=== PATIENT | female | born 1945 ===

== ENCOUNTER 2021-06-23 17:53 | Inpatient (IN) ==
[2021-06-23 21:51] LABS: Hematocrit 31 % (35-47); Hemoglobin 10.3 g/dL (12.0-16.0); Mean Corpuscular HGB Conc 33 g/dL (31-36); Mean Corpuscular Hemoglobin 29 pg (27-31); Mean Corpuscular Volume 87 fL (80-97); Mean Platelet Volume 7.8 fL (7.4-10.4); Platelet Count 251 10^3/uL (150-450); Red Blood Count 3.57 10^6 /uL (3.70-4.87); Red Cell Distribution Width 15 % (10-15); White Blood Count 16.1 10^3/uL (3.5-10.8)
[2021-06-23 21:59] LABS: Urine Appearance Cloudy; Urine Bilirubin Negative (Negative); Urine Blood 1+ (Negative); Urine Color Yellow; Urine Glucose Negative (Negative); Urine Ketones Negative (Negative); Urine Nitrite Negative (Negative); Urine Protein 1+(30 mg/dL) (Negative); Urine Specific Gravity 1.013 (1.002-1.030); Urine Urobilinogen Negative (Negative)
[2021-06-23 22:03] LABS: Urine Bacteria 1+ (Absent); Urine Red Blood Cell 1+(3-5/hpf) (Absent); Urine Squamous Epithelial Cell Present (Absent); Urine White Blood Cell 1+(6-10/hpf) (Absent)
[2021-06-23 22:10] LABS: ALT 23 U/L (7-52); AST 38 U/L (13-39); Albumin 2.6 g/dL (3.2-5.2); Albumin/Globulin Ratio 0.5 (1-3); Alkaline Phosphatase 132 U/L (35-149); Blood Urea Nitrogen 33 mg/dL (6-24); CO2 Carbon Dioxide 23 mmol/L (22-32); Calcium 8.4 mg/dL (8.6-10.3); Chloride 97 mmol/L (101-111); Globulin 5.6 g/dL (2-4); Glucose 152 mg/dL (70-100); Magnesium 1.5 mg/dL (1.9-2.7); Sodium 130 mmol/L (135-145); Total Protein 8.2 g/dL (6.4-8.9)
[2021-06-23 22:14] LABS: ABS Lymphocytes 1.4 10^3/ul (1.0-4.8); ABS Monocytes 2.4 10^3/ul (0-0.8); ABS Neutrophils 12.2 10^3/ul (1.5-7.7); Eosinophil % 0.1 %; Lymphocyte % 8.6 %; Nucleated Red Blood Cells % 0.1
[2021-06-23 22:18] LABS: Anion Gap 10 mmol/L (2-11)
[2021-06-23 22:19] LABS: Potassium 2.6 mmol/L (3.5-5.0)
[2021-06-23 22:21] LABS: Rapid COVID-19 Molecular Undetected (Undetected)
[2021-06-23 22:22] LABS: Influenza A Molecular Negative (Negative); Influenza B Molecular Negative (Negative)
[2021-06-23] MEDS ORDERED: NS 0.9% 1000 ml BAG 1,000 ML IV ONE (22:28)
[2021-06-23] MEDS ORDERED: Azithromycin 500 mg/250 ml NS 500 MG/250 ML BAG IVPB ONE (22:29)
[2021-06-23] MEDS ORDERED: cefTRIAXone 1 gm/50 mL NS BAG 1 GM/50 ML BAG IV ONE (22:29)
[2021-06-23] MEDS ORDERED: Potassium Chlor 20 meq TAB.ER PO ONE (22:30)
[2021-06-23] MEDS ORDERED: Magnesium Sulfate 2 gm BAG 2 GM/50 ML BAG IVPB ONE (22:45)
[2021-06-23 22:47] LABS: Troponin I 0.06 ng/mL (<0.03)
[2021-06-23] MEDS ORDERED: KCL 20 MEQ/100 ML IVPREMIX 20 MEQ/100 ML BAG IV SCH (23:00)
[2021-06-24] MEDS ORDERED: cefTRIAXone VIAL 1,000 MG VIAL IM ONE (01:13)
[2021-06-24] MEDS: Enoxaparin 30 MG/0.3 ML SYR SUBCUT SCH (01:55)
[2021-06-24] MEDS: Neomycin/Polym/Bacit OPH.OINT 3.5 GM BOTH EYES SCH ×5 (03:12→20:48)
[2021-06-24 03:46] LABS: Total Iron Binding Capacity 123 mcg/dL (250-450); Transferrin 88 mg/dL (203-362)
[2021-06-24 03:48] LABS: % Iron Saturation 16 % (15-55); Iron < 20 ug/dL (50-212); Unsaturated Iron Binding < 108 ug/dL
[2021-06-24 05:21] LABS: Troponin I 0.07 ng/mL (<0.03)
[2021-06-24 08:14] LABS: Hematocrit 28 % (35-47); Hemoglobin 9.2 g/dL (12.0-16.0); Mean Corpuscular HGB Conc 33 g/dL (31-36); Mean Corpuscular Hemoglobin 28 pg (27-31); Mean Corpuscular Volume 86 fL (80-97); Mean Platelet Volume 8.1 fL (7.4-10.4); Platelet Count 266 10^3/uL (150-450); Red Blood Count 3.27 10^6 /uL (3.70-4.87); Red Cell Distribution Width 15 % (10-15); White Blood Count 16.5 10^3/uL (3.5-10.8)
[2021-06-24 08:38] LABS: Anion Gap 8 mmol/L (2-11); Blood Urea Nitrogen 35 mg/dL (6-24); CO2 Carbon Dioxide 23 mmol/L (22-32); Calcium 8.3 mg/dL (8.6-10.3); Chloride 102 mmol/L (101-111); Glucose 113 mg/dL (70-100); Magnesium 1.7 mg/dL (1.9-2.7); Potassium 3.1 mmol/L (3.5-5.0); Sodium 133 mmol/L (135-145)
[2021-06-24 09:40] LABS: ABS Eosinophils 0.1 10^3/ul (0-0.6); ABS Lymphocytes 2.1 10^3/ul (1.0-4.8); ABS Monocytes 2.4 10^3/ul (0-0.8); ABS Neutrophils 11.8 10^3/ul (1.5-7.7); Eosinophil % 0.7 %; Lymphocyte % 12.8 %; Nucleated Red Blood Cells % 0.1; RBC Morphology Normal (Normal); Toxic Granulation 1+
[2021-06-24 10:26] LABS: Troponin I 0.07 ng/mL (<0.03)
[2021-06-24] MEDS ORDERED: D5W 1/2 NS 40 Meq KCL 1000 ml 1,000 ML IV SCH (12:00)
[2021-06-24 12:27] LABS: ALT 21 U/L (7-52); AST 35 U/L (13-39); Albumin 2.4 g/dL (3.2-5.2); Albumin/Globulin Ratio 0.5 (1-3); Alkaline Phosphatase 111 U/L (35-149); Anion Gap 13 mmol/L (2-11); Blood Urea Nitrogen 35 mg/dL (6-24); CO2 Carbon Dioxide 19 mmol/L (22-32); Calcium 8.3 mg/dL (8.6-10.3); Chloride 101 mmol/L (101-111); Globulin 5.1 g/dL (2-4); Glucose 116 mg/dL (70-100); Magnesium 1.5 mg/dL (1.9-2.7); Sodium 133 mmol/L (135-145); Total Protein 7.5 g/dL (6.4-8.9)
[2021-06-24 12:30] LABS: Albumin 2.5 g/dL (3.2-5.2); Albumin/Globulin Ratio 0.5 (1-3); Calcium 8.3 mg/dL (8.6-10.3); Globulin 5.1 g/dL (2-4); Magnesium 1.6 mg/dL (1.9-2.7); Total Bilirubin 0.8 mg/dL (0.2-1.0); Total Protein 7.6 g/dL (6.4-8.9)
[2021-06-24 13:06] LABS: Potassium 3.5 mmol/L (3.5-5.0)
[2021-06-25 06:04] LABS: Hematocrit 28 % (35-47); Hemoglobin 9.4 g/dL (12.0-16.0); Mean Corpuscular HGB Conc 33 g/dL (31-36); Mean Corpuscular Hemoglobin 29 pg (27-31); Mean Corpuscular Volume 86 fL (80-97); Mean Platelet Volume 7.9 fL (7.4-10.4); Platelet Count 255 10^3/uL (150-450); Red Blood Count 3.28 10^6 /uL (3.70-4.87); Red Cell Distribution Width 15 % (10-15); White Blood Count 14.8 10^3/uL (3.5-10.8)
[2021-06-25] MEDS: Neomycin/Polym/Bacit OPH.OINT 3.5 GM BOTH EYES SCH ×7 (06:18→20:36)
[2021-06-25 06:22] LABS: Albumin 2.3 g/dL (3.2-5.2); Albumin/Globulin Ratio 0.5 (1-3); Calcium 8.1 mg/dL (8.6-10.3); Globulin 4.6 g/dL (2-4); Magnesium 1.6 mg/dL (1.9-2.7); Potassium 3.5 mmol/L (3.5-5.0); Total Bilirubin 0.7 mg/dL (0.2-1.0); Total Protein 6.9 g/dL (6.4-8.9)
[2021-06-25 06:41] LABS: Ferritin 693.7 ng/mL (11-307)
[2021-06-25 07:14] LABS: ABS Eosinophils 0.2 10^3/ul (0-0.6); ABS Lymphocytes 2.1 10^3/ul (1.0-4.8); ABS Neutrophils 10.5 10^3/ul (1.5-7.7); Eosinophil % 1.2 %; Lymphocyte % 13.8 %
[2021-06-25] MEDS ORDERED: Magnesium Sulf 4 GM/100 ML IV 4,000 MG/100 ML BAG IVPB ONE (07:24)
[2021-06-25] MEDS: Enoxaparin 30 MG/0.3 ML SYR SUBCUT SCH (08:27)
[2021-06-25] MEDS: Azithromyxin PAK 250 mg TA(NF) PO SCH (12:24)
[2021-06-25] MEDS: Fluticasone NASAL SPRAY 50MCG 16 gm SPRAY BTL BOTH NARES SCH (12:26)
[2021-06-25] MEDS: cefTRIAXone 1 gm/50 mL NS BAG 1 GM/50 ML BAG IVPB SCH (12:30)
[2021-06-26] MEDS: Neomycin/Polym/Bacit OPH.OINT 3.5 GM BOTH EYES SCH ×6 (02:47→20:39)
[2021-06-26 06:03] LABS: ABS Eosinophils 0.2 10^3/ul (0-0.6); ABS Lymphocytes 1.8 10^3/ul (1.0-4.8); ABS Monocytes 1.2 10^3/ul (0-0.8); ABS Neutrophils 8.6 10^3/ul (1.5-7.7); Eosinophil % 1.8 %; Hematocrit 31 % (35-47); Hemoglobin 10.2 g/dL (12.0-16.0); Lymphocyte % 15.1 %; Mean Corpuscular HGB Conc 33 g/dL (31-36); Mean Corpuscular Hemoglobin 29 pg (27-31); Mean Corpuscular Volume 87 fL (80-97); Mean Platelet Volume 8.2 fL (7.4-10.4); Platelet Count 265 10^3/uL (150-450); Red Blood Count 3.54 10^6 /uL (3.70-4.87); Red Cell Distribution Width 15 % (10-15); White Blood Count 11.9 10^3/uL (3.5-10.8)
[2021-06-26 06:27] LABS: Calcium 8.4 mg/dL (8.6-10.3); Magnesium 2.3 mg/dL (1.9-2.7); Potassium 3.4 mmol/L (3.5-5.0)
[2021-06-26] MEDS ORDERED: Potassium Chlor 10 meq TAB PO ONE (07:13)
[2021-06-26] MEDS: Fluticasone NASAL SPRAY 50MCG 16 gm SPRAY BTL BOTH NARES SCH (09:37)
[2021-06-26] MEDS: Enoxaparin 30 MG/0.3 ML SYR SUBCUT SCH (09:38)
[2021-06-26] MEDS: cefTRIAXone 1 gm/50 mL NS BAG 1 GM/50 ML BAG IVPB SCH (09:39)
[2021-06-26] MEDS ORDERED: Potassium Chlor 20 meq TAB.ER PO ONE (09:45)
[2021-06-26] MEDS: Azithromyxin PAK 250 mg TA(NF) PO SCH (10:18)
[2021-06-27] MEDS: Neomycin/Polym/Bacit OPH.OINT 3.5 GM BOTH EYES SCH ×4 (01:46→14:07)
[2021-06-27 06:43] LABS: ABS Basophils 0.1 10^3/ul (0-0.2); ABS Eosinophils 0.2 10^3/ul (0-0.6); ABS Lymphocytes 1.8 10^3/ul (1.0-4.8); ABS Monocytes 1.2 10^3/ul (0-0.8); ABS Neutrophils 7.7 10^3/ul (1.5-7.7); Eosinophil % 2.2 %; Hematocrit 29 % (35-47); Hemoglobin 9.7 g/dL (12.0-16.0); Lymphocyte % 16.7 %; Mean Corpuscular HGB Conc 34 g/dL (31-36); Mean Corpuscular Hemoglobin 29 pg (27-31); Mean Corpuscular Volume 87 fL (80-97); Mean Platelet Volume 8.2 fL (7.4-10.4); Platelet Count 244 10^3/uL (150-450); Red Blood Count 3.31 10^6 /uL (3.70-4.87); Red Cell Distribution Width 16 % (10-15)
[2021-06-27 07:01] LABS: Potassium 3.8 mmol/L (3.5-5.0)
[2021-06-27 07:02] LABS: Calcium 7.9 mg/dL (8.6-10.3)
[2021-06-27 07:40] VITALS: BP 113/47
[2021-06-27] MEDS: Fluticasone NASAL SPRAY 50MCG 16 gm SPRAY BTL BOTH NARES SCH (08:03)
[2021-06-27] MEDS: Enoxaparin 30 MG/0.3 ML SYR SUBCUT SCH (08:03)
[2021-06-27] MEDS: cefTRIAXone 1 gm/50 mL NS BAG 1 GM/50 ML BAG IVPB SCH (09:41)
== END 2021-06-27 15:35 | disposition home or self-care (01) | DRG 194 ==
LOC: ED 17:53 → SUATTDRO 06-24 00:03 → EDHOLD 06-24 00:03 → MED 06-24 14:23
PROVIDERS: ADMIT Hospitalist; ATTEND Internal Medicine